=== PATIENT | female | born 1990 | race Caucasian/White ===

== ENCOUNTER 2017-04-18 21:40 | Emergency (ER) | payer OTHER ==
[~2017-04-18] VITALS: Ht 167.6 cm; Wt 88.1 kg
[2017-04-18 21:44] VITALS: BP 163/99; PULSE 80; TEMP 36.8; O2SAT 99; Ht 167.6 cm; Wt 88.1 kg
[2017-04-18] MEDS ORDERED: PRENTAB26 PO (22:05)
[2017-04-18] MEDS ORDERED: MAGN400T6 PO (22:05)
--- NOTE | 2017-04-19 01:53 | EMERGENCY ROOM VISIT NOTE ---
ED Visit Note First contact with patient: 21:46 Chief Complaint: I stuck myself with a bloody needle. History of Present Illness: Ms. Kimbrough is a 27-year-old white female who ambulates into the ED complaining of a needle stick injury to the distal left index finger. Patient reports she was moving the needle from the patient's skin after an injection and accidentally punctured the distal phalanx of the left index finger. She reports she immediately washed the wound and antibacterial soap and water. Currently she denies any associated symptoms including finger pain, finger weakness/numbness/tingling, fevers. Past Medical History: Kidney disease, status post D&C. Current Medications: Multivitamins, magnesium. Allergies to Medications: Patient denies. Social History: Patient is currently employed; she feels safe in her home environment; she denies tobacco and alcohol use. Tetanus Immunization Status: Patient reports up-to-date. Physical Examination: Vital Signs: Date Time Temp Pulse Resp B/P (MAP) Pulse Ox O2 Delivery O2 Flow Rate FiO2 04/18/17 21:44 36.8 80 18 163/99 99 Room Air General: 27-year-old white female in no acute distress, afebrile and hemodynamically stable.. Neurological: Awake, alert and oriented to person, place and time. Answering questions appropriately and following commands.. Skin: Warm, dry and pink. Left Index Finger: Shows a single puncture wound to the tip of the finger. No gross swelling, erythema or ecchymosis. Left Hand: Soft tissue injury as noted above. No gross bony deformity. Mild tenderness in the area of her puncture wound. No tenderness over the PIP, DIP and MCP joints of the finger. Throughout the finger the skin was warm and pink and capillary refill is brisk. She was able to distinguish light and sharp sensations through all dermatomes of the hand. ED Course: Patient was assessed as noted above. Patient's medication list was reviewed. Work related needlestick injury considered as a significant exposure. Patient was given an explanation of the purpose, she used, limitations and meaning of testing. Patient was educated about today's findings and instructed on her treatment plan ; she verbalized understanding and agreement with this plan. Clinical Impression: Percutaneous needle stick injury. Disposition: Patient discharged to home in stable condition. Plan: Comfort measures, wound care and signs of infection were discussed with the patient. Patient was encouraged to follow-up at [facility] for any signs of infection and her blood testing.
== END 2017-04-18 22:10 | disposition home or self-care (01) ==
LOC: C.EDB 21:42 → MERGE 21:42 → C.EDD 22:10
DX: S69.82XA Other specified injuries of left wrist, hand and finger(s), initial encounter (principal); W46.1XXA Contact with contaminated hypodermic needle, initial encounter; N18.9 Chronic kidney disease, unspecified; Y99.0 Civilian activity done for income or pay

== ENCOUNTER 2021-05-02 09:26 | Observation (INO) ==
[2021-05-02] MEDS ORDERED: BETAMETH SOD PHOS/ACETATE IA 6 MG/ML IM STA (09:59)
[2021-05-02] MEDS ORDERED: OXYTOCIN 30 UNITS/500 ML BAG IV PRN (09:59)
[2021-05-02] MEDS ORDERED: PENICILLIN G POTASSIUM 6 MU in DEXTROSE 5% 250 ML IV STA (09:59)
[2021-05-02] MEDS ORDERED: LACTATED RINGER'S 1,000 ML IV PRN (09:59)
[2021-05-02] MEDS ORDERED: MAG SULFATE 6GM BOLUS FROM BAG IV ONE (09:59)
[2021-05-02] MEDS ORDERED: MAGNESIUM SULFATE / WTR 40 GM/1,000 ML BAG IV SCH (10:00)
[2021-05-02 10:28] LABS: Hemoglobin 11.3 g/dL (12.0-16.0); Mean Corpuscular Hemoglobin 29.7 pg (25-34); Mean Corpuscular Volume 86.6 fL (80-100); Mean Platelet Volume 8.9 fL (7.4-10.4); Platelet Count 229 K/uL (130-400); RDW Standard Deviation 41.5 fL (36.4-46.3); Red Blood Count 3.81 M/uL (4.2-5.4)
[2021-05-02 10:30] LABS: Mean Corpuscular Hgb Conc 34.2 g/dL (32-36)
--- NOTE | 2021-05-02 10:31 | History & Physical Report ---
Date of Service May 02, 2021 Assessment & Plan (1) Cervical cerclage suture present: (2) Vaginal bleeding during : Plan: 31 y/o at 24 1/7 wga presents with suspected cerclage torn through and membranes visualized -BP elevated however pt is understandably very upset, bps improving but will get pet labs in case -fetus cat 1, reassuring for GA -VB - suspect cerclage has partially torn through and is the cause of bleeding, now allowing for cervical dilation. Suspect this is more due to painless cervical dilation rather than true ptl as pt is fairly comfortable and toco not indicative of consistent ctx. MFM and NICU at [facility] were contacted. Recommend betamethasone, neuromag, penicillin however we are unclear of pt's dilation vs ptl at this point with regards to transfer so plan to recheck an hour after last to see if progression. If stable, we would further discuss air transfer to [facility] as NICU and MFM would prefer delivery at [facility] if possible. If progressed, would indicate delivery here and NICU would send team once baby is determined to be live and viable upon delivery. Peds team here was also on the phone call and had consultation with pt regarding implications of delivery at 24 wks, she does desire all resuscitation. The pt was informed of this discussion and all questions answered at this time Admission and Anticipated Discharge Date Admission Date: May 02, 2021 History of Present Illness Chief Complaint: Vaginal bleeding Primary Care Provider: Cate Tate 31 y/o a 24 1/7 wga w/ BENJI 08/21 by LMP who presents with complaint of vaginal bleeding. Had a normal BM yesterday w/o extra straining, had dark bloody mucous discharge at that time. This settled out into dark brown discharge that was similar to right after her cerclage was placed. This morning again had normal BM w/o straining and discharge turned brighter red so called and recommended for evaluation. On L&D, pantiliner that she was wearing noted 75% saturated with blood, pt denied LOF other than just on her way in which was blood. +FM and only irreg and mild cramping that she has had since cerclage, no worse than usual. PNI: -Rescue cerclage placed 03/31, 1cm dilated at time of cerclage -Recurrent mab x 6, currently on lovenox 40/d, last injection yesterday at 10am. 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 Date GA wks Lbr Lgth wt Sex Type del Anes Place Del Prov ? Comment 09/29/16 8 Aborted-Spontaneous D&C 08/15/17 8 Aborted-Spontaneous 12/31/17 6 Aborted-Spontaneous D&C 03/18/18 19 omphalocele, prom, cord p rolapse Aborted-Spontaneous D&C 08/16/18 6 Aborted-Spontaneous A 06/11/19 8 Aborted-Spontaneous D&C Denies hx STIs Allergies Allergy/AdvReac Type Severity Reaction Status Date / Time adhesive tape AdvReac Unknown Rash Verified 04/28/21 15:55 Home Medications Medication Instructions Recorded Confirmed Type cholecalciferol (vitamin D3) 125 5,000 units PO DAILY 01/16/19 04/28/21 History mcg (5,000 unit) capsule levothyroxine 50 mcg tablet 50 mcg PO DAILY 01/16/19 04/28/21 History (Synthroid) magnesium oxide 400 mg PO DAILY cap 01/16/19 04/28/21 History [id number]-[id number] 1 tab PO DAILY 01/16/19 04/28/21 History [] ascorbate calcium (vitamin C) 500 500 mg PO DAILY 01/28/21 04/28/21 History mg tablet aspirin 81 mg tablet,delayed 81 mg PO DAILY 01/28/21 04/28/21 History release (Adult Aspirin Regimen) biotin 5,000 mcg PO DAILY 01/28/21 04/28/21 History vitamin E (dl, acetate) 1 tab PO DAILY 01/28/21 04/28/21 History enoxaparin 40 mg/0.4 mL 40 mg SUBCUT DAILY 30 Days #12 ml 03/04/21 04/28/21 Rx subcutaneous syringe (Lovenox) zinc 50 mg tablet 50 mg PO DAILY 04/04/21 04/28/21 History Patient History Medical History Anxiety no meds Common migraine without aura Not having migraines since using magnesium supplement 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 Status post hysteroscopic resection of uterine septum 2015 at [facility]. Status post hysteroscopic resection of uterine septum 2019 with [facility] (second operation - it had regrown) Vaginal septum 2015 at [facility], surgically removed Family History Grandmother (Paternal) Breast cancer Mother Ovarian cancer, Onset Age: 41 Not tested for BRCA Father Cancer kidney Kidney disease Grandmother (Paternal) Cancer lung Lung cancer Other Congenital kidney disease Denies family history of Prostate cancer Colorectal cancer Social History Smoking Status: Never smoker Second Hand Exposure: No; Hx Alcohol Use: No (occasionally) Hx Substance Use: No Preferred Language: Malagasy Visual Impairment: No Limitations Hearing Ability: Normal Beliefs That Will Affect Care: None marital status: marital status details: Maximus Kimbrough (34) [phone] Current Living Situation: Spouse Current Living Situation Comment: Lives with spouse. 2 dogs, 3 cats. 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 Once clot was removed and speculum was opened slightly, was able to see membranes just past os, not funneling to introitus On very gentle digital exam, it felt like stitch was tearing through on pt's right side, approx 9 o'clock. Membranes palpated approx 3cm however difficult to palpate cervix beyond it due to thinness of cervix Results & Data ([facility]) Vital Signs (Past 12 Hours) Vital Signs Temp Pulse BP 11/22/21 10:04 97.9 F 05/02/21 09:56 90 159/77 H 05/02/21 09:53 93 H 171/87 H 05/02/21 09:33 115 H 194/107 H Laboratory Results OB Labs: Blood Type O Positive 02/01/21 Antibody Screen NEGATIVE 02/01/21 Hemoglobin 12.6 g/dL (12.0-16.0) 02/01/21 Hematocrit 36.2 % (37-47) L 02/01/21 Mean Corpuscular Volume 84.2 fL (80-100) 02/01/21 Platelet Count 248 K/uL (130-400) 02/01/21 Rubella IgG Antibody Immune (Immune) 02/01/21 Rapid Plasma Reagin Nonreactive (Nonreactive) 02/01/21 Hepatitis B Surface Antigen Neg (Neg) 02/01/21 HIV (1&2) Ab and P24 Ag, 4th Gener Neg (Neg) 02/01/21 Glucose 1 Hour 50 gm Load 119 mg/dl (70-130) 03/04/21 Maternal Serum Alpha Fetoprotein 32.6 ng/mL 03/04/21 OB Optional Labs: Chlamydia trachomatis RNA NOT DETECTED (NOT DETECTED) 02/01/21 Neisseria gonorrhoeae RNA NOT DETECTED (NOT DETECTED) 02/01/21 Thyroid Stimulating Hormone (TSH) 1.560 uIu/ml (0.300-4.500) 04/12/21 Alpha Fetoprotein Triple Screen SEE NOTE 03/04/21 Labs Reviewed: 06/25/20 cf/sma negative cf/sma neg --smp cfDNA low risk --smp neg afp Diagnostic Findings footling breech on BSUS today Anatomy 03/31 EFW 352g 89%, ant plac Coding Level of Care Code None Diagnoses Cervical cerclage suture present O34.30 Vaginal bleeding during O46.90
[2021-05-02] MEDS ORDERED: SODIUM CHLORIDE 0.9% 250 ML IV PRN (10:32)
[2021-05-02 11:16] LABS: Alanine Aminotransferase 56 U/L (12-78); Albumin Level 2.6 gm/dl (3.4-5.0); Aspartate Aminotransferase 22 U/L (15-37); BUN Creatinine Ratio 14.5 (10-20); Blood Urea Nitrogen 6 mg/dl (7-18); Calcium 9.2 mg/dl (8.5-10.1); Carbon Dioxide 23 mmol/L (21-32); Chloride 105 mmol/L (98-107); Creatinine Clr Calc Pharmacy 231.8 ml/min; Est GFR (African American) > 150.0 ml/min; Est GFR (Non-African American) 134.7 ml/min; Glucose 96 mg/dl (70-99); Potassium 3.7 mmol/L (3.5-5.1); Sodium 136 mmol/L (136-145)
[2021-05-02 11:18] LABS: Albumin Globulin Ratio 0.6 (0.9-2); Alkaline Phosphatase 128 U/L (45-117); Bilirubin,Total 0.2 mg/dl (0.2-1); Globulin 4.6 gm/dl (2.5-4.0); Total Protein 7.2 gm/dl (6.4-8.2)
--- NOTE | 2021-05-02 11:25 | Labor Progress Brief Note ---
Date of Service May 02, 2021 Subjective Pt re-evaluated approx 1hr after last exam as discussed with [facility]. Continues to deny significant cramping or abdominal pain, tolerating Tburg position. s/p 6gm mag bolus, first dose of BMZ and initiation of pcn. Correa placed for UOP. GC/CT, GBS and covid swab were obtained in the interim as well. Assessment & Plan (1) Cervical cerclage suture present: (2) Vaginal bleeding during : Plan: 31 y/o at 24 1/7 wga presents with cervical dilation, suspected cerclage torn through and membranes visualized -BP normalized, pet labs wnl -fetus cat 1, reassuring for GA -VB - Exam is stable from 1hour ago, continues to deny s/s of PTL at this point. MFM and NICU contacted and they are accepting of transfer by air. Consent for transfer including risks were reviewed in depth with patient and and signed after all questions answered to the best of my abilities. Last lovenox dose at 10AM yesterday. Admission and Anticipated Discharge Date Admission Date: May 02, 2021 Physical Exam Genitourinary: Manual OB Exam: + cervical dilation 3 cm, + cervical effacement 90% and + station -2 OB Exam Monitor Tracing: + external FHT monitor used, + external uterine monitor used (rare ctx) and + category I (145/mod/+accel/- decel) Cervix is very difficult to palpate again due to how thin it is, it does still feel about 3cm, membranes less prominent as in trendelenburg position and correa catheter in place Results & Data ([facility]) Vital Signs (Past 12 Hours) Vital Signs Temp Pulse BP 05/02/21 10:50 86 129/72 05/02/21 10:20 93 H 155/87 H 05/02/21 10:04 97.9 F 05/02/21 09:56 90 159/77 H 05/02/21 09:53 93 H 171/87 H 05/02/21 09:33 115 H 194/107 H Laboratory Results 05/02/21 05/02/21 05/02/21 Range/Units Unknown Unknown 10:43 WBC (4.8-10.8) K/uL RBC (4.2-5.4) M/uL Hgb (12.0-16.0) g/dL Hct (37-47) % MCV (80-100) fL MCH (25-34) pg MCHC (32-36) g/dL RDW Std Deviation (36.4-46.3) fL RDW Coeff of Yoshi (11.5-14.5) % Plt Count (130-400) K/uL MPV (7.4-10.4) fL Sodium 136 (136-145) mmol/L Potassium 3.7 (3.5-5.1) mmol/L Chloride 105 (98-107) mmol/L Carbon Dioxide 23 (21-32) mmol/L Anion Gap 8.0 (3-11) BUN 6 L (7-18) mg/dl Creatinine 0.42 L (0.6-1.2) mg/dl Est Cr Clr Drug Dosing 231.8 ml/min Est GFR ( Amer) > 150.0 ml/min Est GFR (Non-Af Amer) 134.7 ml/min BUN/Creatinine Ratio 14.5 (10-20) Glucose 96 (70-99) mg/dl Calcium 9.2 (8.5-10.1) mg/dl Total Bilirubin 0.2 (0.2-1) mg/dl AST 22 (15-37) U/L ALT 56 (12-78) U/L Alkaline Phosphatase 128 H (45-117) U/L Total Protein 7.2 (6.4-8.2) gm/dl Albumin 2.6 L (3.4-5.0) gm/dl Globulin 4.6 H (2.5-4.0) gm/dl Albumin/Globulin Ratio 0.6 L (0.9-2) Ur Random Creatinine 20.5 mg/dl U Random Total Protein 5.4 (0-11.9) mg/dl Protein/Creatinin Ratio 0.3 H (0-0.2) SARS-CoV-2, RNA, NAAT NEGATIVE (NEGATIVE) Blood Type Antibody Screen Crossmatch 05/02/21 05/02/21 Range/Units 10:15 10:15 WBC 13.80 H (4.8-10.8) K/uL RBC 3.81 L (4.2-5.4) M/uL Hgb 11.3 L (12.0-16.0) g/dL Hct 33.0 L (37-47) % MCV 86.6 (80-100) fL MCH 29.7 (25-34) pg MCHC 34.2 (32-36) g/dL RDW Std Deviation 41.5 (36.4-46.3) fL RDW Coeff of Yoshi 13.0 (11.5-14.5) % Plt Count 229 (130-400) K/uL MPV 8.9 (7.4-10.4) fL Sodium (136-145) mmol/L Potassium (3.5-5.1) mmol/L Chloride (98-107) mmol/L Carbon Dioxide (21-32) mmol/L Anion Gap (3-11) BUN (7-18) mg/dl Creatinine (0.6-1.2) mg/dl Est Cr Clr Drug Dosing ml/min Est GFR ( Amer) ml/min Est GFR (Non-Af Amer) ml/min BUN/Creatinine Ratio (10-20) Glucose (70-99) mg/dl Calcium (8.5-10.1) mg/dl Total Bilirubin (0.2-1) mg/dl AST (15-37) U/L ALT (12-78) U/L Alkaline Phosphatase (45-117) U/L Total Protein (6.4-8.2) gm/dl Albumin (3.4-5.0) gm/dl Globulin (2.5-4.0) gm/dl Albumin/Globulin Ratio (0.9-2) Ur Random Creatinine mg/dl U Random Total Protein (0-11.9) mg/dl Protein/Creatinin Ratio (0-0.2) SARS-CoV-2, RNA, NAAT (NEGATIVE) Blood Type O Positive Antibody Screen NEGATIVE Crossmatch See Detail Coding Level of Care Code None Diagnoses Cervical cerclage suture present O34.30 Vaginal bleeding during O46.90
[2021-05-02 11:33] LABS: Creatinine Urine Random 20.5 mg/dl; Protein Creatinine Ratio Urine 0.3 (0-0.2); Total Protein Urine Random 5.4 mg/dl (0-11.9)
[2021-05-02] MEDS ORDERED: PENICILLIN G POTASSIUM 3 MU in DEXTROSE 5% 100 ML IV PRN (13:00)
[2021-05-03 19:21] LABS: Chlamydia Trach RNA NOT DETECTED (NOT DETECTED); GC (Neis gonorrhoeae) RNA NOT DETECTED (NOT DETECTED); Trichomonas vaginalis RNA NOT DETECTED (NOT DETECTED)
--- NOTE | 2021-05-04 11:03 | Discharge Summary ---
Date of Service May 04, 2021 Admission HPI Per Admitting Provider 31 y/o a 24 1/7 wga w/ BENJI 08/21 by LMP who presents with complaint of vaginal bleeding. Had a normal BM yesterday w/o extra straining, had dark bloody mucous discharge at that time. This settled out into dark brown discharge that was similar to right after her cerclage was placed. This morning again had normal BM w/o straining and discharge turned brighter red so called and recommended for evaluation. On L&D, pantiliner that she was wearing noted 75% saturated with blood, pt denied LOF other than just on her way in which was blood. +FM and only irreg and mild cramping that she has had since cerclage, no worse than usual. PNI: -Rescue cerclage placed 03/31, 1cm dilated at time of cerclage -Recurrent mab x 6, currently on lovenox 40/d, last injection yesterday at 10am. 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 Date GA wks Lbr Lgth wt Sex Type del Anes Place Del Prov ? Comment 09/29/16 8 Aborted-Spontaneous D&C 08/15/17 8 Aborted-Spontaneous 12/31/17 6 Aborted-Spontaneous D&C 03/18/18 19 omphalocele, prom, cord p rolapse Aborted-Spontaneous D&C 08/16/18 6 Aborted-Spontaneous 06/11/19 8 Aborted-Spontaneous D&C Denies hx STIs Discharge Data Consultations 05/02/21 10:06 Consult Anesthesiology Stat Hospital Course (1) Cervical cerclage suture present: (2) Vaginal bleeding during : 31 y/o at 24 1/7 wga presents with cervical dilation, suspected cerclage torn through and membranes visualized -BP normalized, pet labs wnl -fetus cat 1, reassuring for GA -VB - Exam is stable from 1hour ago, continues to deny s/s of PTL at this point. MFM and NICU contacted and they are accepting of transfer by air. Consent for transfer including risks were reviewed in depth with patient and and signed after all questions answered to the best of my abilities. Last lovenox dose at 10AM yesterday. Coding Level of Care Code D/C DAY MANAGEMENT >30 MINS Diagnoses Cervical cerclage suture present O34.30 Vaginal bleeding during O46.90
== END 2021-05-02 12:05 | disposition short-term general hospital (02) ==
LOC: OPB 09:26 → 4S1 09:27 → INTOOBSV 10:00